=== PATIENT | female | born 1940 | race Caucasian/White ===

== ENCOUNTER → 2017-03-04 | Outpatient (CLI) | payer MEDICARE, OTHER ==
--- NOTE | 2017-03-05 16:41 | XR ---
EXAMINATION TYPE: XR foot complete bilateral DATE OF EXAM: 03/04/2017 3:29 PM COMPARISON: NONE HISTORY: 76-year-old female pain in both feet, complaining of the bottom of the feet feeling lumpy. TECHNIQUE: 3 views each side FINDINGS: Accessory ossicle os peroneum on the left. Small posterior calcaneal spurs. On the left, there is a m oderate sized plantar calcaneal spur and small on the right. No acute fracture, subluxation, or dislo cation. Possible hammertoes. IMPRESSION: 1. No acute osseous abnormality seen. 2. Moderate-sized plantar calcaneal spur on the left and small on the right.
--- NOTE | 2017-03-05 16:42 | XR ---
EXAMINATION TYPE: XR shoulder complete LT DATE OF EXAM: 03/04/2017 3:29 PM COMPARISON: NONE HISTORY: 76-year-old female with left shoulder pain and limited range of motion TECHNIQUE: 3 views FINDINGS: The exam is overpenetrated and limited in assessment. AC joint not clearly evaluated. Subacromial spa ce is preserved. No definite tendinous or bursal calcification seen. There may be minimal inferior gl enoid spurring. No acute fracture or dislocation. IMPRESSION: Limited, overpenetrated exam. Minimal degenerative spurring in the glenohumeral joint. AC joint is wellington boptimally visualized.
== END ==
LOC: RADXRYALE 13:51
PROVIDERS: ATTEND Internal Medicine
DX: M75.82 Other shoulder lesions, left shoulder (principal); M77.32 Calcaneal spur, left foot; M77.31 Calcaneal spur, right foot

== ENCOUNTER → 2017-08-18 | Outpatient (CLI) | payer MEDICARE, OTHER ==
--- NOTE | 2017-08-18 13:41 | XR ---
EXAMINATION TYPE: XR lumbosacral spine min 4V DATE OF EXAM: 08/18/2017 CLINICAL HISTORY: Right buttock pain after injury TECHNIQUE: Frontal, lateral, and oblique images of the lumbar spine are obtained. COMPARISON: None FINDINGS: There is a levoscoliotic curvature of the lumbar spine. There are 5 lumbar type vertebral bodies identified. The lumbar spine shows satisfactory alignment without evidence of acute fracture or dislocation. There is mild anterior vertebral body wedge compression for many of the T11 vertebral resulting in approximately 20% vertebral body height loss without retropulsion. Multilevel degenerat garfield disc disease is seen with grade 1 anterolisthesis of L4 on L5. The overlying soft tissue appears unremarkable. Calcific atheromatous changes are seen of the abdominal aorta and its branches. Multilevel degenerative disc disease is displayed as facet arthropathy, anterior bridging osteophytes , endplate sclerosis and intervertebral disc space narrowing present throughout the lumbar spine resu lting in variable degrees of neural foraminal narrowing at least mild to moderate within the lower vic mbar spine. IMPRESSION: 1. Mild anterior T11 vertebral body wedge compression deformity with height loss of approximately 20% and no retropulsion. Given the patient's complaint of right buttock pain this finding is not likely acute. Correlate for point tenderness. 2. Multilevel degenerative disc disease resulting in variable degrees of neural foraminal stenosis. 3. Grade 1 anterolisthesis of L4 on L5, likely on a degenerative basis.
== END ==
LOC: RADXRYALE 12:06
PROVIDERS: ATTEND Internal Medicine
DX: M99.73 Connective tissue and disc stenosis of intervertebral foramina of lumbar region (principal); M43.16 Spondylolisthesis, lumbar region; M51.16 Intervertebral disc disorders with radiculopathy, lumbar region
CPT/HCPCS: 72110

== ENCOUNTER → 2018-01-10 | Outpatient (CLI) | payer MEDICARE, OTHER ==
--- NOTE | 2018-01-10 14:53 | US ---
EXAMINATION TYPE: US carotid duplex BILAT DATE OF EXAM: 01/10/2018 COMPARISON: NONE CLINICAL HISTORY: Shortness OfBreath R06.02, R42 Dizziness. EXAM MEASUREMENTS: RIGHT: Peak Systolic Velocity (PSV) cm/sec ----- Right CCA: 107 ----- Right ICA: 89.2 ----- Right ECA: 125 ICA/CCA ratio: 1.2 RIGHT: End Diastole cm/sec ----- Right CCA: 13.4 ----- Right ICA: 24.7 ----- Right ECA: 12.2 LEFT: Peak Systolic Velocity (PSV) cm/sec ----- Left CCA: 81.7 ----- Left ICA: 74.9 ----- Left ECA: 92.7 ICA/CCA ratio: 1.08 LEFT: End Diastole cm/sec ----- Left CCA: 16.1 ----- Left ICA: 23.4 ----- Left ECA: 9.4 VERTEBRALS (direction of flow): Right Vertebral: Antegrade Left Vertebral: Antegrade Rhythm: Normal Mild plaque, no significant velocity elevations. IMPRESSION: No hemodynamically significant stenosis within either carotid arterial system.
== END | disposition home or self-care (01) ==
LOC: RADUSWWP 13:52
PROVIDERS: ATTEND Internal Medicine
DX: R42 Dizziness and giddiness (principal); R06.02 Shortness of breath
CPT/HCPCS: 93880

== ENCOUNTER → 2018-03-28 | Outpatient (CLI) | payer MEDICARE, OTHER ==
--- NOTE | 2018-03-28 17:08 | XR ---
EXAMINATION: XR chest 2V DATE AND TIME: 03/28/2018 4:53 PM ORDERING PROVIDER: Denice Valles MD CLINICAL INDICATION: J449 COPD TECHNIQUE: PA and lateral COMPARISON: None. DESCRIPTION: The overlying soft tissues are prominent. The lungs are clear. The pleural spaces are negative. The cardiac silhouette is not enlarged. The mediastinal and pleural silhouettes are unremarkable. The skeletal structures are intact without focal findings. IMPRESSION: NO ACUTE PROCESS.
== END | disposition home or self-care (01) ==
LOC: RADXRYALE 16:44
PROVIDERS: ATTEND Internal Medicine
DX: J44.9 Chronic obstructive pulmonary disease, unspecified (principal)
CPT/HCPCS: 71046

== ENCOUNTER → 2019-06-20 | Outpatient (CLI) | payer MEDICARE, OTHER ==
--- NOTE | 2019-06-20 09:29 | US ---
EXAMINATION TYPE: US abdomen complete DATE OF EXAM: 06/20/2019 COMPARISON: NONE CLINICAL HISTORY: R10.11 right upper quadrant pain. Abdomen pain and nausea x 3 days EXAM MEASUREMENTS: Liver Length: 19.0 cm Gallbladder Wall: 0.3 cm CBD: 0.5 cm Spleen: 10.6 cm Right Kidney: 11.5 x 6.5 x 5.8 cm Left Kidney: 10.5 x 4.6 x 5.4 cm Difficult and limited study due to patient body habitus and overlying bowel gas Pancreas: duct seen measuring 0.4cm Liver: Mildly enlarged. Homogeneous in its visualized portions. Gallbladder: hydropic size, cholelithiasis Evidence for sonographic Ewing's sign: yes CBD: visualized portions wnl Spleen: visualized portions wnl Right Kidney: visualized portions wnl Left Kidney: visualized portions wnl Upper IVC: wnl Abd Aorta: proximal portion wnl, mid and distal portions obscured by overlying midline bowel gas The liver is homogenous. The intrahepatic portion of the IVC and proximal abdominal aorta are within normal limits. Cholelithiasis is present. Gallbladder is enlarged. Gallbladder wall is upper limits of normal. Common bile duct is unremarkable. The visualized portions of the pancreas are homogenous. The spleen is unremarkable. Kidneys are symmetric and free of hydronephrosis. No renal lesions ar e seen. IMPRESSION: 1. Hydropic size of the gallbladder, cholelithiasis, and positive sonographic Ewing sign as well as upper limits of normal wall thickness of the gallbladder is concerning for early acute cholecystitis although no common bile duct dilatation is seen. Correlation with clinical exam and serum laboratory values is recommended. Although gallstones are seen if clinical exam is equivocal HIDA scan could sti ll be considered. 2. Pancreatic duct isn't enlarged and MRCP within without contrast is recommended for further evaluat ion to exclude pancreatic head neoplasm or main duct on AP and then A Yellow level critical message alert has been initiated for Deince Valles MD via the [employer] Critical Results System on 06/20/2019 9:27 AM. This message alert has been sent to Denice Valles MD v ia the preferences provided by the clinician for the receipt of Radiology Critical Findings. Message ID [id number].
== END | disposition home or self-care (01) ==
LOC: RADUSWWP 08:39
PROVIDERS: ATTEND Internal Medicine
DX: K80.20 Calculus of gallbladder without cholecystitis without obstruction (principal); K82.8 Other specified diseases of gallbladder
CPT/HCPCS: 76700

== ENCOUNTER → 2023-08-24 | Outpatient (CLI) | payer OTHER ==
--- NOTE | 2023-08-24 11:26 | BD ---
EXAMINATION TYPE: Axial Bone Density DATE OF EXAM: 08/24/2023 CLINICAL HISTORY: 82 years old Female. ICD-10 CODE: M81.0 AGE RELATED OSTEOPOROSIS Height: 60 Weight: 250.8 FRAX RISK QUESTIONS: Alcohol (3 or more units per day): no Family History (Parent hip fracture): no Glucocorticoids (More than 3mos): no (Ex: prednisone, prednisolone, methylprednisolone, dexamethasone, and hydrocortisone). History of Fracture in Adulthood: no Secondary Osteoporosis: 1. Type 1 Diabetes: no 2. Hyperthyroidism: no 3. Menopause before 45: yes 4. Malnutrition: no 5. Chronic liver disease: no Rheumatoid Arthritis: no Current Tobacco Use: no RISK FACTORS HISTORY OF: Surgery to Spine/Hip(right/left)/Wrist (right/left): no Family History of Osteoporosis: no Active: no Diet low in dairy products/other sources of calcium: yes Postmenopausal woman: yes Lost more than 2 inches in height since high school: yes MEDICATIONS: Additional History: EXAM MEASUREMENTS: Bone mineral densitometry was performed using the [employer] System. Bone mineral density as measured about the Lumbar spine is: ----- L1-L4(G/cm2): 1.362 T Score Values are as follows: ----- L1: 1.6 ----- L2: 0.6 ----- L3: 1.8 ----- L4: 2.1 ----- L1-L4: 1.5 Z Score Values are as follows: ----- L1: 2.4 ----- L2: 1.3 ----- L3: 2.5 ----- L4: 2.8 ----- L1-L4: 2.2 Bone mineral density : baseline Bone mineral density about the R hip (g/cm2): 0.892 Bone mineral density about the L hip (g/cm2): 0.857 T Score values are as follows: -----R Neck: -0.4 -----L Neck: -1.3 -----R Total: -0.9 -----L Total: -1.2 Z Score values are as follows: -----R Neck: 1.1 -----L Neck: 0.2 -----R Total: 0.5 -----L Total: 0.2 Bone mineral density : baseline FRAX%s: The graph provided illustrates a 10.3 % chance for a major osteoporotic fx and a 2.3% chance for the hips probability for fx in 10 years time. IMPRESSION: Osteopenia (T Score between -2.5 and -1). There is slightly increased risk of fracture and the patient may be considered for treatment. Re-Screen 2-5 years. NOTE: T-SCORE=SD OF THE YOUNG ADULT MEAN.
== END | disposition home or self-care (01) ==
LOC: RADBDWWP 10:40
PROVIDERS: ATTEND Emergency Medicine
DX: M81.0 Age-related osteoporosis without current pathological fracture (principal); M85.852 Other specified disorders of bone density and structure, left thigh; Z78.0 Asymptomatic menopausal state
CPT/HCPCS: 77080

== ENCOUNTER → 2023-08-27 | Outpatient (CLI) | payer OTHER ==
--- NOTE | 2023-08-27 14:52 | US ---
EXAMINATION TYPE: US venous doppler duplex LE LT DATE OF EXAM: 08/27/2023 1:41 PM COMPARISON: NONE CLINICAL INDICATION: Female, 82 years old with history of LLE R22.42 LOCALIZED SWELLING, MASS AND LUM P, LEFT; left lower leg swelling and redness SIDE PERFORMED: Left TECHNIQUE: The lower extremity deep venous system is examined utilizing real time linear array sonog arsh with graded compression, doppler sonography and color-flow sonography. VESSELS IMAGED: Common Femoral Vein Deep Femoral Vein Greater Saphenous Vein * Femoral Vein Popliteal Vein Proximal Calf Veins (* superficial vessels) Left Leg: Negative for DVT exam limited by edema, body habitus, and large heavy pannus overlying leg to the mid femoral vein IMPRESSION: Grayscale, color doppler, spectral doppler imaging performed of the deep veins of the lo wer extremities. There is normal flow, compressibility, vascular waveforms.
== END | disposition home or self-care (01) ==
LOC: RADUSWWP 12:55
PROVIDERS: ATTEND Emergency Medicine
DX: R22.42 Localized swelling, mass and lump, left lower limb (principal)

== ENCOUNTER → 2023-09-14 | Outpatient (CLI) | payer OTHER ==
--- NOTE | 2023-09-14 13:05 | CA ---
Lexiscan Nuclear Stress Test Report Name: Venita Dotson Exam Date: 09/14/2023 10:52 Exam Location: [place] Stress Ht (in): 61 Wt (lb): 250 BSA: 2.08 Ordering Phys: Vu Torre MD Referring Phys: vu torre,, Technologist: Kristopher Walker Age: 82 Gender: F : 1940 Procedure CPT: Indications: exertional dyspnea ICD-10 Codes: Patient History: HTN, DM, CHOL, TOB Medications: SEE LIST Meds past 24 hrs: Pretest Chest Pain: STRESS TEST Lexiscan Protocol Exercise Duration (min:sec): 01:[address] Depressions (mm): Angina Score: Vila Score: Resting HR (bpm): 86 Peak HR (bpm): 102 Resting BP (mmHg): 145 / 70 Peak BP (mmHg): 143 / 52 MPHR: 137 Target HR: 116 % MPHR: 74 METS: 1.0 Total Dose: Peak Dose: Atropine: Double Product: 06706 BP Response: Stress Termination: END OF DOSAGE Stress Symptoms: Stress Summary: ECG ANALYSIS Resting ECG: Sinus rhythm. Normal conduction. No arrhythmias. Stress ECG: No ECG changes from baseline with Lexiscan infusion. CONCLUSIONS No ECG evidence of ischemia with Lexiscan infusion. Nuclear test results to follow. Dr. Brenda Madrid MD (Electronically Signed) Final Date: 14 September 2023 13:04
--- NOTE | 2023-09-15 14:23 | NM ---
EXAMINATION TYPE: NM stress lexiscan cardiolite DATE OF EXAM: 09/14/2023 COMPARISON: NONE CLINICAL INDICATION: Female, 82 years old with history of exertional dyspnea; TECHNIQUE: After the intravenous administration of 9.8 mCi Tc 99m Sestamibi - Cardiolite resting SPE CT images acquired 55 minutes post injection. The patient received 0.4mg Lexiscan, 25.1 mCi Tc 99m Sestamibi - Stress images obtained [address] injection FINDINGS: Review of stress and rest SPECT images demonstrates area of stress-induced reversible ischemia involv ing the apical inferior myocardium. Gated analysis shows normal wall motion with an estimated left v entricular ejection fraction of 74 %. IMPRESSION: Exam positive for stress-induced reversible ischemia apicoinferior myocardium. Referring clinician no tified by telephone 2:19 PM 09/15/2023.
== END | disposition home or self-care (01) ==
LOC: RADNMMAIN 08:51
PROVIDERS: ATTEND Emergency Medicine
DX: R06.00 Dyspnea, unspecified (principal); R94.39 Abnormal result of other cardiovascular function study
CPT/HCPCS: 93017; 78452; A9500

== ENCOUNTER 2024-10-04 09:59 | Day surgery (SDC) | payer OTHER ==
[2024-10-03 13:02] VITALS: BMI 48.3
[2024-10-04 10:43] VITALS: RESP 16; TEMP 98.2
[2024-10-04] MEDS: LACTATED RINGERS 1,000 ML IV SCH (10:43)
[2024-10-04] MEDS: IV FLUID CONTINUATION 1,000 ML IV ONE ×2 (10:43→11:19)
[2024-10-04 10:57] LABS: Glucose,Whole Blood 131 mg/dL (70-110)
[2024-10-04] MEDS ORDERED: LIDOCAINE 1% INJ 10MG/ML (20 ML MDV) ONE (10:57)
[2024-10-04] MEDS ORDERED: PROPOFOL 10 MG/ML 20 ML VIAL IV ONE (10:57)
--- NOTE | 2024-10-04 11:16 | P.PCN ---
Date of Procedure: 10/04/24 Procedure(s) Performed: BRIEF HISTORY: Patient is a 83-year-old pleasant white female scheduled for an elective colonoscopy as a part of dilation of chronic diarrhea for the last 2 years duration. PROCEDURE PERFORMED: Colonoscopy with random biopsies and snare polypectomy. PREOPERATIVE DIAGNOSIS: Chronic diarrhea. IV sedation per Anesthesia. PROCEDURE: After informed consent was obtained, the patient, was brought into the endoscopy unit. IV sedation was administered by Anesthesia under continuous monitoring. Digital rectal examination was normal. Initially the Olympus CF-160 flexible video colonoscope was then inserted in the rectum, gradually advanced into the cecum without any difficulty. Careful examination was performed as the scope was gradually being withdrawn. Ileocecal valve and the appendiceal orifice were visualized and appeared normal. Prep was excellent. Mucosa of the cecum, ascending colon, transverse colon, descending colon, were normal. Random biopsies were done from the ascending and descending colon to rule out microscopic/collagenous colitis. In the sigmoid colon there were 3 polyps measuring 5 mm and 7 mm in size removed by cold snare polypectomy. There was a 1 cm polyp that was removed by hot snare polypectomy. Scattered left-sided diverticulosis seen. Rest of the sigmoid colon, and rectum appeared normal. Retroflexion was performed in the rectum and no lesions were seen. The patient tolerated the procedure well. IMPRESSION: 5 mm, 7 mm and 1 cm sigmoid colon polyp status post snare polypectomy Scattered sigmoid diverticula RECOMMENDATIONS: Findings of this examination were discussed with the patient as well as her family. She was advised to follow with the biopsy results. She will be seen in the office in 2 weeks.
[2024-10-04 11:36] VITALS: BP 109/52; PULSE 70
== END 2024-10-04 12:06 | disposition home or self-care (01) ==
LOC: ORWHC2ENDO 09:59
PROVIDERS: ATTEND Internal Medicine Gastroenterology
DX: K52.9 Noninfective gastroenteritis and colitis, unspecified (principal); D12.5 Benign neoplasm of sigmoid colon; K57.30 Diverticulosis of large intestine without perforation or abscess without bleeding; E11.9 Type 2 diabetes mellitus without complications; F41.9 Anxiety disorder, unspecified; F32.A Depression, unspecified; N28.9 Disorder of kidney and ureter, unspecified; R06.02 Shortness of breath; Z79.899 Other long term (current) drug therapy; Z79.4 Long term (current) use of insulin; Z79.84 Long term (current) use of oral hypoglycemic drugs
CPT/HCPCS: 88305; 45380; 45385; J2003; J2704